=== PATIENT | male | born 2000 | race Hispanic/Latino ===

== ENCOUNTER → 2023-05-02 15:45 | Outpatient (CLI) | payer OTHER, SELFPAY ==
--- NOTE | 2023-05-02 15:51 | DI.MRI.S_ITS ---
PROCEDURE: MR LUMBAR SPINE WO CON INDICATIONS: pain TECHNIQUE: Noncontrast sagittal T1 spin echo and T2 fast echo, sagittal STIR, and T2 fast spin echo through the lumbar spine. In cases with scoliosis, additional coronal T2 fast spin echo may be performed. COMPARISON: SN[facility] Outside Film, CR, XR LUMBAR SPINE 2 OR 3 VIEWS, 10/20/2022, 12:08. FINDINGS: Image quality: Excellent. Alignment and Curvature: There is retrolisthesis of L5 on S1. Bone Marrow: Marrow is of normal overall signal. No acute vertebral body compression fractures. Spinal Cord: Conus medullaris terminates at the L1 level. Visualized cord demonstrates normal signal and size. Paraspinous Soft Tissues: No paravertebral masses. T12-L1: No disc bulge, spinal stenosis or foraminal narrowing. L1-L2: No disc bulge, spinal stenosis or foraminal narrowing. L2-L3: No disc bulge, spinal stenosis or foraminal narrowing. L3-L4: No disc bulge, spinal stenosis or foraminal narrowing. L4-L5: No disc bulge, spinal stenosis or foraminal narrowing. L5-S1: No disc bulge, spinal stenosis or foraminal narrowing. IMPRESSION: No disc bulge, spinal stenosis or foraminal narrowing. Dictated by: Lizabeth Shay M.D. on 05/02/2023 at 17:06 Approved by: Lizabeth Shay M.D. on 05/02/2023 at 17:07
== END ==
PROVIDERS: Referring Provider Preventive Medicine Aerospace Medicine; Visit Provider Preventive Medicine Aerospace Medicine
DX: R20.2 Paresthesia of skin (principal)
CPT/HCPCS: 72148

== ENCOUNTER → 2024-01-23 08:23 | Outpatient (CLI) | payer OTHER, SELFPAY ==
--- NOTE | 2024-01-23 08:24 | DI.MRI.S_ITS ---
PROCEDURE: MR CERVICAL SPINE WO CON INDICATIONS: Paresthesia of skin TECHNIQUE: Noncontrast sagittal T1 spin echo and T2 fast spin echo, sagittal STIR, foraminal oblique sagittal T2 fast spin echo, and axial gradient echo or T2 fast spin echo through the cervical spine. COMPARISON: None. FINDINGS: Image quality: Excellent. Alignment and Curvature: There is normal bony alignment. Bone Marrow: Marrow demonstrates normal overall signal. Spinal Cord: Visualized spinal cord has normal size and signal. No cerebellar tonsillar herniation. Paraspinous Soft Tissues: No paravertebral masses. Prevertebral soft tissues are normal in thickness. C2-C3: Normal appearance. C3-C4: Normal appearance. C4-C5: Normal appearance. C5-C6: Normal appearance. C6-C7: Normal appearance. C7-T1: Normal appearance. IMPRESSION: Normal MRI of the cervical spine Approved by: Bryant Ivy M.D. on 01/23/2024 at 12:53
== END ==
LOC: MRI 08:23
PROVIDERS: Family Provider Preventive Medicine Aerospace Medicine; PCP Preventive Medicine Aerospace Medicine; Referring Provider Preventive Medicine Aerospace Medicine; Visit Provider Preventive Medicine Aerospace Medicine
DX: R20.2 Paresthesia of skin (principal); G95.9 Disease of spinal cord, unspecified; R29.2 Abnormal reflex
CPT/HCPCS: 72141

== ENCOUNTER 2024-03-31 10:45 | Outpatient (RCR) | payer OTHER, SELFPAY ==
--- NOTE | 2024-01-21 14:21 | OT.OP.EVAL ---
Visit Care Team Role Provider Type Janie Carver DO Attending Provider Non-Staff Family Provider Primary Care Provider Referring Provider Specialty: Medical Address: [facility] [place], [address] Email: Occupational Therapy Initial Evaluation OT Outpatient Adult Evaluation Start: 01/21/24 11:33 Freq: Status: Active Protocol: Document 01/21/24 11:35 ELIEZER (Rec: 01/21/24 12:33 ELIEZER [id number]) General Information - Adult Visit Number 04/27 Plan of Care Dates 01/21/24 - 03/31/24 Insurance Information Prime 12 visits approved Visit Start Date 01/21/24 Visit Start Time 11:40 Visit Stop Time 12:20 Treatment Setting Outpatient Care Note Type Initial Evaluation Referring Physician Janie Carver Reason for Referral neuralgia/neuritis; B hand pain Identification Confirmed Yes Identification Confirmed By name, EMR Patient Questionnaires Quick Dash UE Score 40 Quick Dash UE Impairment 40 to 59% Impaired (Score 40- 59) Quick Dash W&S Score 75 Quick Dash Work and Sport Impairment 60 to 79% Impaired (Score 60- 79) Wrist/Hand Special Test Wrist Finklestein Test Negative Left,Negative Right Wrist Phalen Test Negative Left,Negative Right Wrist Tinel Test Negative Left,Negative Right Froment's Sign Negative Left,Negative Right Goals Objective Measurements AROM B UE grossly WFL/WNL for all movements and planes. B digit MP flex/ext 5/5, B digit abd 5/5 MMT: B elbow flex/ext 5/5; B wrist flex/ext 5/5; B forearm supination/pronation 5/5 Copy Technician: R 70, 65, 64(66.3#) L 55, 68, 75 (66#) lateral: R 8, L 7 pincer: R 6, L 6 3 jaw R 7.5, L 10 Short Term Goals 1. Pt will complete FMC and sensory testing. Appropriate goals to follow. 2. Pt will increase B bankruptcy legal assistant strength avg by 20# to improve functional use when carrying items. 3. Pt will report improved perception of function with QuickDash score of 30 or better. 4. Pt will report being able to carry his laundry basket to his room without having to set it down. Procurement Professional Goals 1. Pt will be I with HEP. 2. Pt will report a change of at least 3 points for PSFS Assessment/Plan Patient Response Good Rehabilitation Potential Good Impairments Identified ADLs,Body Mechanics, Coordination/Dexterity, Functional Activities,Pain, Weakness,Posture,Meaningful Activities Treatment Assessment Pt is a 23 yo R hand dominant M who was referred for skilled OT services due to B hand pain and + radha?s tests with a diagnosis of unspecified neuralgia/neuritis . Pt reports that he has been having pain in B hands with the L >R for approximately 1.5 years. Pt reports that pain has been gradually getting worse and that he has pain both with use and at rest. Pt reports that at times he has a burning sensation along his fingertips. Pt reports he received PT on the [employer] last year but did not have any marked improvements. Pt reports that he has pain in other areas including his neck , shoulders, and LEs. Pt reports he is working with a neurologist at this time. 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 He reports he has not been able to work lately due to his pain . Pt tries to rest his hands where they will not hurt. Pt reports that he is able to brush his teeth, shave, and shower with increased pain but without any modification. Pt denies any difficulty with getting dressed. Pt plays video games on phone for leisure, he has to take breaks due to pain. Pt reports he has difficulty gripping and carrying things, for example a grocery bag or laundry basket . He reports having to set the items down due to pain and reports that occasionally his fingers ?lock? in the hooked position when carrying a heavy bag. Patient Specific Functional Scale (PSFS): 1. ?work? 06/23; 2. ?picking up stuff? (ex. Grocery bag) 10 Pt has an overall forward shoulder and head posture which may relate to his c/o nerve like symptoms. At the time of the evaluation, pt was negative [place] for Finklestein, Phalen, Tinel (wrist), and Froment?s special tests. Pt does report feeling sensations with these tests, but the results are not consistent with what the special test is testing. Pt reports inconsistent pain or spasms in a random pattern for B UEs. OT is unable to replicate the same response twice. OT notes L 5th digit fasciculates at times. Pt also frequently adjusts his upper body appearing as if to find a comfortable position. Pt with good in-hand manipulation, finger to palm, and palm to finger. Pt demonstrates normal UE strength with respect to MMT. Pt?s bankruptcy legal assistant strength is approximately 40# less than the norms for his age group. Pt would benefit from additional testing for FMC and sensory testing. Skilled OT services are appropriate to address pt deficits and promote return toward PLOF. Pt may also benefit from additional testing to the source of his neurological symptoms and may benefit from PT. Reviewed with Patient Goals Patient Understanding Good Length of treatment (weeks) 10 Plan of Care Start Date 01/21/24 Plan of Care End Date 03/31/24 Treatment Frequency Once a Week Treatment Duration 45 Minutes Therapeutic Contents Functional Activities,Home Exercise Program,Joint Protection,Manual Therapy, Education,Neuromuscular Re- Education,Self-Care, Therapeutic Activities, Therapeutic Exercises,Sensory Re-education Patient Instruction Plan of Care,Questions/ Concerns
--- NOTE | 2024-01-21 14:24 | OT.OPPOC ---
Physical, Occupational & Speech Therapy At [facility] Mario Styles [id number] 2000 Visit Care Team Role Provider Type Janie Carver DO Attending Provider Non-Staff Family Provider Primary Care Provider Referring Provider Address: [address] [place] [address], [id number] Occupational Therapy Plan of Care OT Outpatient Adult Evaluation Start: 01/21/24 11:33 Freq: Status: Active Protocol: Document 01/21/24 11:35 NOEGEOFFREY (Rec: 01/21/24 12:33 NOEDCKMI [id number]) General Information - Adult Visit Information Visit Number 04/27 Plan of Care Dates 01/21/24 - 03/31/24 Insurance Information Prime 12 visits approved Session Time Visit Start Date 01/21/24 Visit Start Time 11:40 Visit Stop Time 12:20 Setting Treatment Setting Outpatient Care Visit Type Note Type Initial Evaluation Referral Referring Physician Janie Carver Reason for Referral neuralgia/neuritis; B hand pain Identification Identification Confirmed Yes Identification Confirmed By name, EMR Patient Questionnaires Quick Dash- Upper Extremity Quick Dash UE Score 40 Quick Dash UE Impairment 40 to 59% Impaired (Score 40- 59) Quick Dash- Work and Sports Modules Quick Dash W&S Score 75 Quick Dash Work and Sport Impairment 60 to 79% Impaired (Score 60- 79) Wrist/Hand Special Test Tenosynovitis Wrist Finklestein Test Negative Left,Negative Right Median Nerve-Carpal Tunnel Wrist Phalen Test Negative Left,Negative Right Wrist Tinel Test Negative Left,Negative Right Ulnar Nerve Froment's Sign Negative Left,Negative Right Goals Objective Measurements Objective Measurements AROM B UE grossly WFL/WNL for all movements and planes. B digit MP flex/ext 5/5, B digit abd 5/5 MMT: B elbow flex/ext 5/5; B wrist flex/ext 5/5; B forearm supination/pronation 5/5 Audit Control Clerk: R 70, 65, 64 (66.3#) L 55, 68, 75 (66#) Lateral: R 8, L 7 Pincer: R 6, L 6 3 jaw: R 7.5, L 10 Short Term Goals Short Term Goals 1. Pt will complete FMC and sensory testing. Appropriate goals to follow. 2. Pt will increase B access analyst strength avg by 20# to improve functional use when carrying items. 3. Pt will report improved perception of function with QuickDash score of 30 or better. 4. Pt will report being able to carry his laundry basket to his room without having to set it down. Middle Card Tender Goals Middle Card Tender Goals 1. Pt will be I with HEP. 2. Pt will report a change of at least 3 points for PSFS Assessment/Plan Assessment Patient Response Good Rehabilitation Potential Good Impairments Identified ADLs,Body Mechanics, Coordination/Dexterity, Functional Activities,Pain, Weakness,Posture,Meaningful Activities Treatment Assessment Pt is a 23 yo R hand dominant M who was referred for skilled OT services due to B hand pain and + radha?s tests with a diagnosis of unspecified neuralgia/neuritis . Pt reports that he has been having pain in B hands with the L >R for approximately 1.5 years. Pt reports that pain has been gradually getting worse and that he has pain both with use and at rest. Pt reports that at times he has a burning sensation along his fingertips. Pt reports he received PT [facility] the [employer] [facility] last year but did not have any marked improvements. Pt reports that he has pain in other areas including his neck , shoulders, and LEs. Pt reports he is working with a neurologist at this time. 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 He reports he has not been able to work lately due to his pain . Pt tries to rest his hands where they will not hurt. Pt reports that he is able to brush his teeth, shave, and shower with increased pain but without any modification. Pt denies any difficulty with getting dressed. Pt plays video games on phone for leisure, he has to take breaks due to pain. Pt reports he has difficulty gripping and carrying things, for example a grocery bag or laundry basket . He reports having to set the items down due to pain and reports that occasionally his fingers ?lock? in the hooked position when carrying a heavy bag. Patient Specific Functional Scale (PSFS): 1. ?work? 06/23; 2. ?picking up stuff? (ex. Grocery bag) 08/23 Pt has an overall forward shoulder and head posture which may relate to his c/o nerve like symptoms. At the time of the evaluation, pt was negative [place] for Finklestein, Phalen, Tinel (wrist), and Froment?s special tests. Pt does report feeling sensations with these tests, but the results are not consistent with what the special test is testing. Pt reports inconsistent pain or spasms in a random pattern for B UEs. OT is unable to replicate the same response twice. OT notes L 5th digit fasciculates at times. Pt also frequently adjusts his upper body appearing as if to find a comfortable position. Pt with good in-hand manipulation, finger to palm, and palm to finger. Pt demonstrates normal UE strength with respect to MMT. Pt?s access analyst strength is approximately 40# less than the norms for his age group. Pt would benefit from additional testing for FMC and sensory testing. Skilled OT services are appropriate to address pt deficits and promote return toward PLOF. Pt may also benefit from additional testing to the source of his neurological symptoms and may benefit from PT. Reviewed with Patient Goals Patient Understanding Good Plan Length of treatment (weeks) 10 Plan of Care Start Date 01/21/24 Plan of Care End Date 03/31/24 Treatment Frequency Once a Week Treatment Duration 45 Minutes Therapeutic Contents Functional Activities,Home Exercise Program,Joint Protection,Manual Therapy, Education,Neuromuscular Re- Education,Self-Care, Therapeutic Activities, Therapeutic Exercises,Sensory Re-education Patient Instruction Plan of Care,Questions/ Concerns Functional Wrist/Hand Scan Hand Side Sensory Assessment Sensory Profile2 Electronically Signed by: Latoya Vuong OT 01/21/24 1895 If you are in agreement with this Plan of Care, please return a signed and dated copy. I have reviewed this Plan of Care and certify that the skilled therapy services above are required to meet the patient?s needs. Physician Signature Date Printed Name and Credentials Clinical Instructor Signature Printed Name and Credentials
--- NOTE | 2024-01-28 13:02 | OT.OP.TRT ---
Visit Care Team Role Provider Type Janie Carver DO Attending Provider Non-Staff Family Provider Primary Care Provider Referring Provider Specialty: Medical Address: [address] [place] [address], [id number] Email: Occupational Therapy Treatment Note OT Outpatient Treatment Note - Adult Start: 01/21/24 11:33 Freq: Status: Active Protocol: Document 01/28/24 09:49 ELIEZER (Rec: 01/28/24 10:30 ELIEZER [id number]) OT Outpatient Adult Treatment Note Session Time Visit Start Date 01/28/24 Visit Start Time 09:50 Visit Stop Time 10:30 Visit Information Visit Number 05/28 Plan of Care Dates 01/21/24 - 03/31/24 Insurance Information Prime 12 visits approved Setting Treatment Setting Outpatient Care Visit Type Note Type Treatment Note - Subjective Identification Type Name Identification Reconciled With Medical Record Observations On entrance to treatment pt reports that his hand feels itchy but when he rubs it it does not improve the sensation . Pt initially localized sensation to radial dorsal aspect of L palm but then reports that it spreads and changes place. Pt denies anything that brings on the sensation. At start of tx pt reports a little bit of pain at L CMC at rest. - Objective Objective Measurements 9 hole peg test: R 21seconds, L 23 seconds Short Term Goals 1. Pt will complete FMC and sensory testing. Appropriate goals to follow. MET- 01/28/24 no new goals indicated based on assessments 2. Pt will increase B delivery sales worker strength avg by 20# to improve functional use when carrying items. Pt will report improved perception of function with QuickDash score of 30 or better. 4. Pt will report being able to carry his laundry basket to his room without having to set it down. Entry Table Operator Goals 1. Pt will be I with HEP. 2. Pt will report a change of at least 3 points for PSFS - Exercises 2 Descriptor Biometrics Consultant/Pinch: Red tputty gross grasp extension log roll alternating digit pinch finger loop digit extension 1 Descriptor Scapular retraining (to off load nerves): retraction (3-5 second hold) x 15 posterior shoulder roll x15 - Assessment Patient Response to Treatment Good Rehabilitation Potential Good Impairments Identified ADLs,Body Mechanics, Coordination/Dexterity, Functional Activities,Pain, Weakness,Posture,Meaningful Activities Assessment of Improvement Pt participated in assessment of FMC with 9 hole peg test along with sensory testing for sharp/dull, light touch, and deep touch. Pt was able to accurately discriminate all sensory inputs B'ly. No deficits noted. Pt completes 9 hole peg test within age related norms. No new goals are indicated for either of these. Pt made many reports of nerve type pain (tingling, burning) but the area of sensation was inconsistent with all tasks being performed . Pt would fixated on various sensations and had a difficult time attend or switching tasks, requiring increased vc and demonstration. Pt had difficulty tolerating scapular exercises due to c/o discomfort in shoulders. OT explained the purpose of these exercises to correct pt's posture and off load his nerves in hopes of reducing nerve like symptoms distally. Cont per established POC. - Plan Therapy Recommendations Continue with Current Program Amount of Therapy Recommended 2-3 Months Frequency of Treatment Once a Week Length of Session 45 Minutes Therapeutic Contents Functional Activities,Home Exercise Program,Joint Protection,Manual Therapy, Education,Neuromuscular Re- Education,Self-Care, Therapeutic Activities, Therapeutic Exercises,Sensory Re-education
--- NOTE | 2024-02-04 12:41 | OT.OP.TRT ---
Visit Care Team Role Provider Type Janie Carver DO Attending Provider Non-Staff Family Provider Primary Care Provider Referring Provider Specialty: Medical Address: [facility] [place], [address] Email: Occupational Therapy Treatment Note OT Outpatient Treatment Note - Adult Start: 01/21/24 11:33 Freq: Status: Active Protocol: Document 02/04/24 09:49 ELIEZER (Rec: 02/04/24 10:37 ELIEZER [id number]) OT Outpatient Adult Treatment Note Session Time Visit Start Date 02/04/24 Visit Start Time 09:45 Visit Stop Time 10:30 Visit Information Visit Number 06/25 Plan of Care Dates 01/21/24 - 03/31/24 Insurance Information Prime 12 visits approved Setting Treatment Setting Outpatient Care Visit Type Note Type Treatment Note - Subjective Identification Type Name Identification Reconciled With Medical Record Observations At start of treatment pt reports that his thumbs are bothering him they feel weird , it feels like something is poking it and indicated the tip of his left thumb. Pt also reports that his left medial lateral forearm feels like it 's getting pulled at rest kind of like bruised maybe. Following rubberband exercises pt reports that his R shoulder and upper arm it's hard to explain it feels like iron, like blood, it feels stretched like it rosenbaum. - Objective Short Term Goals 1. Pt will complete FMC and sensory testing. Appropriate goals to follow. MET- 01/28/24 no new goals indicated based on assessments 2. Pt will increase B handle turner strength avg by 20# to improve functional use when carrying items. Pt will report improved perception of function with QuickDash score of 30 or better. 4. Pt will report being able to carry his laundry basket to his room without having to set it down. Varnishing Machine Operator Goals 1. Pt will be I with HEP. 2. Pt will report a change of at least 3 points for PSFS - Exercises 3 Descriptor stablility: rubberband B thumb extension rubberband B thumb abd closed chain ball opponens/ abductor roll 2 Descriptor Casting Supervisor/Pinch: Red tputty gross grasp extension log roll alternating digit pinch finger loop digit extension 1 Descriptor Scapular retraining (to off load nerves): retraction (3-5 second hold) x 15 posterior shoulder roll x15 - Assessment Patient Response to Treatment Good Rehabilitation Potential Good Impairments Identified ADLs,Body Mechanics, Coordination/Dexterity, Functional Activities,Pain, Weakness,Posture,Meaningful Activities Assessment of Improvement Pt reports increased symptoms (it feels like my nerves and it feels like my shoulder is going to dislocate) with submaximal scapular retraction and posterior shoulder rolls. Pt performs all tasks slowly due to c/o of increased symptoms. Pt has poor posture and needs frequent cues to sit tall and not collapse forward. OT believes his posture may impact his specific set of sensations. Despite pt's symptoms, he was able to tolerate treatment well. Exercises were modified as needed. Cont per established POC. - Plan Therapy Recommendations Continue with Current Program Amount of Therapy Recommended 2-3 Months Frequency of Treatment Once a Week Length of Session 45 Minutes Therapeutic Contents Functional Activities,Home Exercise Program,Joint Protection,Manual Therapy, Education,Neuromuscular Re- Education,Self-Care, Therapeutic Activities, Therapeutic Exercises,Sensory Re-education
--- NOTE | 2024-02-11 12:45 | OT.OP.TRT ---
Visit Care Team Role Provider Type Janie Carver DO Attending Provider Non-Staff Family Provider Primary Care Provider Referring Provider Specialty: Medical Address: [facility] [place], [address] Email: Occupational Therapy Treatment Note OT Outpatient Treatment Note - Adult Start: 01/21/24 11:33 Freq: Status: Active Protocol: Document 02/11/24 09:53 ELIEZER (Rec: 02/11/24 10:30 ELIEZER [id number]) OT Outpatient Adult Treatment Note Session Time Visit Start Date 02/11/24 Visit Start Time 09:45 Visit Stop Time 10:30 Visit Information Visit Number 07/26 Plan of Care Dates 01/21/24 - 03/31/24 Insurance Information Prime 12 visits approved Setting Treatment Setting Outpatient Care Visit Type Note Type Treatment Note - Subjective Identification Type Name Identification Reconciled With Medical Record Observations Pt reports symptom mostly in R side today. Pt denies any symptoms in L yet. Pt reports that posterior shoulder rolls and retraction caused a numb, sting, like I' m not getting enough bloodflow sensation at his R shoulder and posterior aspect od R middle finger. Everything just feels weird, weakness I can't put my full strength down on it. My strength comes and goes. Sometimes I do have strength and sometimes I don't Pt reported they feel better following tputty exercises. - Objective Short Term Goals 1. Pt will complete FMC and sensory testing. Appropriate goals to follow. MET- 01/28/24 no new goals indicated based on assessments 2. Pt will increase B hospitality intern strength avg by 20# to improve functional use when carrying items. Pt will report improved perception of function with QuickDash score of 30 or better. 4. Pt will report being able to carry his laundry basket to his room without having to set it down. [facility] Goals 1. Pt will be I with HEP. 2. Pt will report a change of at least 3 points for PSFS - Exercises 4 Descriptor hospitality intern: B digi flex red alternating 3 Descriptor stablility: rubberband B thumb extension rubberband B thumb abd closed chain ball opponens/ abductor roll (unable to tolerate) 2 Descriptor Patient Services Assistant/Pinch:B Red tputty gross grasp extension log roll alternating digit pinch 3 jaw pulls lateral pinch pulls graded clothespin yellow 3 jaw squeeze 1 Descriptor Scapular retraining (to off load nerves): retraction (3-5 second hold) x 15 posterior shoulder roll x15 - Assessment Patient Response to Treatment Good Rehabilitation Potential Good Impairments Identified ADLs,Body Mechanics, Coordination/Dexterity, Functional Activities,Pain, Weakness,Posture,Meaningful Activities Assessment of Improvement Pt continues to report increased symptoms with scapular exercises. Pt generally has forward head and shoulder posture and would benefit from postural changes to take pressure off the nerves. OT will continue to try to address these within tolerated limits. Pt tolerated addition of strengthening tasks for B hands with minimal c/o of discomfort. For the most part, pt's symptoms reduced with continued use of his hands. On occasion this did not occur and exercises were terminated or modified as needed. Pt's complaints continue to be intermittent and inconsistent with task. Cont per established POC. - Plan Therapy Recommendations Continue with Current Program Amount of Therapy Recommended 2-3 Months Frequency of Treatment Once a Week Length of Session 45 Minutes Therapeutic Contents Functional Activities,Home Exercise Program,Joint Protection,Manual Therapy, Education,Neuromuscular Re- Education,Self-Care, Therapeutic Activities, Therapeutic Exercises,Sensory Re-education
--- NOTE | 2024-02-20 12:57 | OT.OP.TRT ---
Visit Care Team Role Provider Type Janie Carver DO Attending Provider Non-Staff Family Provider Primary Care Provider Referring Provider Specialty: Medical Address: [facility] [place], [address] Email: Occupational Therapy Treatment Note OT Outpatient Treatment Note - Adult Start: 01/21/24 11:33 Freq: Status: Active Protocol: Document 02/20/24 10:55 ELIEZER (Rec: 02/20/24 09:31 ELIEZER [id number]) OT Outpatient Adult Treatment Note Session Time Visit Start Date 02/20/24 Visit Start Time 10:55 Visit Stop Time 11:30 Visit Information Visit Number 08/25 Plan of Care Dates 01/21/24 - 03/31/24 Insurance Information [facility] 12 visits approved Setting Treatment Setting Outpatient Care Visit Type Note Type Treatment Note - Subjective Identification Type Name Identification Reconciled With Medical Record Observations Right now it feels weak. It like hurts but it doesn't at the same time. I feel pain mostly on the ring finger and at my elbow. (ring finger c/o B, and elbow is on L only). It is mostly when I wake up. Pt reports he sleeps on his back with his arms at his side . Sometimes he wakes up on his side. I usually don't stay in the same position for long, I wake up all night moving. Pt says when he feels weak it feels like when nails are on a chalk board. Pt reports that he has not been doing his tputty HEP because he is forgetting to. Pt has not eaten yet today. Pt wonders if that might be why he feels so weak. - Objective Objective Measurements nurse's aides teacher: R 55, 41, 38 (avg 44.7#) L 44, 41, 31 (avg 38.7#) Short Term Goals 1. Pt will complete FMC and sensory testing. Appropriate goals to follow. MET- 01/28/24 no new goals indicated based on assessments 2. Pt will increase B nurse's aides teacher strength avg by 20# to improve functional use when carrying items. Pt will report improved perception of function with QuickDash score of 30 or better. 4. Pt will report being able to carry his laundry basket to his room without having to set it down. Skilled Nursing Goals 1. Pt will be I with HEP. 2. Pt will report a change of at least 3 points for PSFS - Exercises 4 Descriptor nurse's aides teacher: B digi flex red alternating 3 Descriptor stablility: rubberband B thumb extension rubberband B thumb abd closed chain ball opponens/ abductor roll (unable to tolerate) 2 Descriptor Rn Patient Services/Pinch:B Red tputty gross grasp extension log roll alternating digit pinch 3 jaw pulls lateral pinch pulls graded clothespin yellow 3 jaw squeeze - Assessment Patient Response to Treatment Good Rehabilitation Potential Good Impairments Identified ADLs,Body Mechanics, Coordination/Dexterity, Functional Activities,Pain, Weakness,Posture,Meaningful Activities Assessment of Improvement Pt has decreased nurse's aides teacher strength today vs eval. Pt appeared to be putting for full effort with each nurse's aides teacher, R nurse's aides teacher is decreased by 21.6# and L by 27 .3#. During task, pt reports that he didn't feel like he could put forth more effort because it's weak feeling. OT educates pt on benefit of performing HEP and need for a good diet and hydration for general healing and body function. Pt verbalizes understanding. Pt generally tolerates treatment well, with frequent short rbs and vcs to encourage continuation of exercises when pt becomes distracted by his evolving symptoms. OT does not have a logical theory for pt's particular presentation of symptoms, however, continues to encourage general strength and conditioning for functional gains. Cont per POC . Reviewed with Patient/Caregiver Home Exercise Program Patient/Caregiver Understanding Good - Plan Therapy Recommendations Continue with Current Program Amount of Therapy Recommended 2-3 Months Frequency of Treatment Once a Week Length of Session 45 Minutes Therapeutic Contents Functional Activities,Home Exercise Program,Joint Protection,Manual Therapy, Education,Neuromuscular Re- Education,Self-Care, Therapeutic Activities, Therapeutic Exercises,Sensory Re-education
--- NOTE | 2024-02-27 12:54 | OT.OP.TRT ---
Visit Care Team Role Provider Type Janie Carver DO Attending Provider Non-Staff Family Provider Primary Care Provider Referring Provider Specialty: Medical Address: [address] [place] [address], [id number] Email: Occupational Therapy Treatment Note OT Outpatient Treatment Note - Adult Start: 01/21/24 11:33 Freq: Status: Active Protocol: Document 02/27/24 10:46 NOESREEEMILYDENNIS (Rec: 02/27/24 10:51 ELIEZER [id number]) OT Outpatient Adult Treatment Note Session Time Visit Start Date 02/27/24 Visit Start Time 10:45 Visit Stop Time 11:30 Visit Information Visit Number 09/25 Plan of Care Dates 01/21/24 - 03/31/24 Insurance Information [facility] 12 visits approved Setting Treatment Setting Outpatient Care Visit Type Note Type Treatment Note - Subjective Identification Type Name Identification Reconciled With Medical Record Observations At start of tx pt reports that my thumbs hurt and my fingers are just there. He says that he has some pain in his fingers is on the palm side when he flexes his fingers. Pt frequently reports feeling like the palmar aspect of his hands feel bruised when performing clinical data programmer and pinch exercises. Following tx pt reports it doesn't feel that bad pt also reports seeing benefit of exercises for building strength. - Objective Objective Measurements clinical data programmer: R 50, 50, 56 (avg 52#) L 47, 70, 60 (avg 59#) Short Term Goals 1. Pt will complete FMC and sensory testing. Appropriate goals to follow. MET- 01/28/24 no new goals indicated based on assessments 2. Pt will increase B clinical data programmer strength avg by 20# to improve functional use when carrying items. Pt will report improved perception of function with QuickDash score of 30 or better. 4. Pt will report being able to carry his laundry basket to his room without having to set it down. MET 02/27/24 [facility] Goals 1. Pt will be I with HEP. 2. Pt will report a change of at least 3 points for PSFS - Exercises 6 Descriptor Free weight: 1# (one set) 2# ( one set) B wrist flexion 20x2 B wrist extension 20x2 B wrist radial/ulnar deviation 20x 5 Descriptor Flex bar (red): B supination x20 B pronation x20 B wrist flex and ext ( attempted, d/c due to excessive popping at elbow) 4 Descriptor clinical data programmer: B digi flex red alternating 3 Descriptor stability: 2 Descriptor Manager Mining/Pinch: B Red tputty: -gross grasp -extension log roll -alternating digit pinch -3 jaw pulls -lateral pinch pulls graded clothespin yellow 3 jaw squeeze 1 Descriptor Scapular retraining (to off load nerves): retraction (3-5 second hold) 15x, 10x posterior shoulder roll 15x, 10x - Assessment Patient Response to Treatment Good Rehabilitation Potential Good Impairments Identified ADLs,Body Mechanics, Coordination/Dexterity, Functional Activities,Pain, Weakness,Posture,Meaningful Activities Assessment of Improvement Pt's clinical data programmer strength is improved from last week but is still decreased from eval. Pt c/o hands feeling weak and bruised throughout treatment session. Pt tolerated new exercises well, with one exception, he had some popping at the PRUJ with flex bar wrist flex/ext, this exercises was discontinued and replaced with weighted wrist strengthening. He tolerated this well and seemed to see a benefit to it. Pt has met STG #4. He reports that he does ot have to set his laundry basket down , but that he does have pain in his fingers when carrying it. Cont per established POC. Reviewed with Patient/Caregiver Home Exercise Program Patient/Caregiver Understanding Good - Plan Therapy Recommendations Continue with Current Program Amount of Therapy Recommended 2-3 Months Frequency of Treatment Once a Week Length of Session 45 Minutes Therapeutic Contents Functional Activities,Home Exercise Program,Joint Protection,Manual Therapy, Education,Neuromuscular Re- Education,Self-Care, Therapeutic Activities, Therapeutic Exercises,Sensory Re-education
--- NOTE | 2024-03-05 12:52 | OT.OP.TRT ---
Visit Care Team Role Provider Type Janie Carver DO Attending Provider Non-Staff Family Provider Primary Care Provider Referring Provider Specialty: Medical Address: [address] [place] [address], [id number] Email: Occupational Therapy Treatment Note OT Outpatient Treatment Note - Adult Start: 01/21/24 11:33 Freq: Status: Active Protocol: Document 03/05/24 10:45 NOEGEOFFREY (Rec: 03/05/24 08:14 NOESREEKIM [id number]) OT Outpatient Adult Treatment Note Session Time Visit Start Date 03/05/24 Visit Start Time 10:45 Visit Stop Time 11:30 Visit Information Visit Number 10/25 Plan of Care Dates 01/21/24 - 03/31/24 Insurance Information Prime 12 visits approved Setting Treatment Setting Outpatient Care Visit Type Note Type Treatment Note - Subjective Identification Type Name Identification Reconciled With Medical Record Observations At start of tx pt reports his fingers hurt, he touches the dorsal and palmar surfaces of B 5th digits when stating this . He reports it feels like the type of pain you get when you touch the stove. Pt's c/ o pain moved from his 5th digit to his 4th digit on the R side prior to any treatment activity. Pt later reports L wrist pain it feels bruised with weighted wrist activities . Pt reports feeling it in his L shoulder and describes as a burn when performing hand and forearm strengthening at midline. As therapy progressed, pt c/o his L shoulder feeling heavy. - Objective Short Term Goals 1. Pt will complete FMC and sensory testing. Appropriate goals to follow. MET- 01/28/24 no new goals indicated based on assessments 2. Pt will increase B roof panel hanger strength avg by 20# to improve functional use when carrying items. 3. Pt will report improved perception of function with QuickDash score of 30 or better. 4. Pt will report being able to carry his laundry basket to his room without having to set it down. MET 02/27/24 Furniture Inspector Goals 1. Pt will be I with HEP. 2. Pt will report a change of at least 3 points for PSFS - Exercises 6 Descriptor Free weight: 2# B wrist flexion 8x, 10x B wrist extension 8x, 10x B wrist radial/ulnar deviation 10x2 5 Descriptor Flex bar (red): B supination 10x2 B pronation 10x2 4 Descriptor roof panel hanger: B digi flex green alternating x10 B digi flex green composite x10 3 Descriptor stability: 2 Descriptor Trip Motor Operator/Pinch: B Red tputty: -gross grasp -extension log roll -alternating digit pinch -3 jaw pulls -lateral pinch pulls graded clothespin red 3 jaw squeeze 10x2 1 Descriptor Scapular retraining (to off load nerves): retraction 20x posterior shoulder roll 20x - Assessment Patient Response to Treatment Good Rehabilitation Potential Good Impairments Identified ADLs,Body Mechanics, Coordination/Dexterity, Functional Activities,Pain, Weakness,Posture,Meaningful Activities Assessment of Improvement Pt overall continues to have somewhat forward head and shoulders posture at rest. Pt is able to sit tall with vcs. Pt has evolving symptoms that change throughout treatment session and do not seem to correspond specifically or predictably to the task at hand. Pt requires encouragement to continue exercise/task at on occasion as he becomes fixated on his evolving symptoms. It is difficult to assess pt's progress as pt's complaints are inconsistent and frequently change during the same exercise/task. Pt tolerated increased resistance with free weights, digi flex, and graded clothespin today in efforts to build pt's functional strength. In past treatments, pt has demonstrated a decrease in his roof panel hanger strength from his initial strength on eval. OT will continue to address ex/ act to improve pts function. Cont per POC. Reviewed with Patient/Caregiver Home Exercise Program Patient/Caregiver Understanding Good - Plan Therapy Recommendations Continue with Current Program Amount of Therapy Recommended 2-3 Months Frequency of Treatment Once a Week Length of Session 45 Minutes Therapeutic Contents Functional Activities,Home Exercise Program,Joint Protection,Manual Therapy, Education,Neuromuscular Re- Education,Self-Care, Therapeutic Activities, Therapeutic Exercises,Sensory Re-education
--- NOTE | 2024-03-10 12:57 | OT.OP.TRT ---
Visit Care Team Role Provider Type Janie Carver DO Attending Provider Non-Staff Family Provider Primary Care Provider Referring Provider Specialty: Medical Address: [facility] [place], [address] Email: Occupational Therapy Treatment Note OT Outpatient Treatment Note - Adult Start: 01/21/24 11:33 Freq: Status: Active Protocol: Document 03/10/24 10:45 ELIEZER (Rec: 03/10/24 11:29 ELIEZER [id number]) OT Outpatient Adult Treatment Note Session Time Visit Start Date 03/10/24 Visit Start Time 10:45 Visit Stop Time 11:30 Visit Information Visit Number 11/25 Plan of Care Dates 01/21/24 - 03/31/24 Insurance Information Prime 12 visits approved Setting Treatment Setting Outpatient Care Visit Type Note Type Treatment Note - Subjective Identification Type Name Identification Reconciled With Medical Record Observations At start of tx pt reports feeling it in B 4th digits both palmar and dorsal surfaces. As tx progresses pt c/o joint pain in his 5th digits. At end of tx pt reports I just feel it in my pinky, all around, and on my thumb. Pt reports that his muscles are tired throughout treatment. Pt takes rbs as necessary. - Objective Objective Measurements claims account specialist: R 53, 50, 60 (avg 54.3#) L 55, 52, 65 (avg 57.3#) Short Term Goals 1. Pt will complete FMC and sensory testing. Appropriate goals to follow. MET- 01/28/24 no new goals indicated based on assessments 2. Pt will increase B claims account specialist strength avg by 20# to improve functional use when carrying items. 3. Pt will report improved perception of function with QuickDash score of 30 or better. 4. Pt will report being able to carry his laundry basket to his room without having to set it down. MET 02/27/24 Window Repairer Goals 1. Pt will be I with HEP. 2. Pt will report a change of at least 3 points for PSFS - Exercises 6 Descriptor Free weight: 2# B wrist flexion 10x3 B wrist extension 10x3 B wrist radial/ulnar deviation 10x3 5 Descriptor Flex bar (red): B supination 15x3 B pronation 15x3 4 Descriptor claims account specialist: B digi flex blue alternating 10x2 B digi flex blue composite 10x3 3 Descriptor digit extension with green resistance 15x3 2 Descriptor Event Host/Pinch: B Red tputty: -gross grasp -extension log roll -alternating digit pinch -3 jaw pulls -lateral pinch pulls graded clothespin green 3 jaw squeeze 10x, blue 3 jaw squeeze 10x2 - Assessment Patient Response to Treatment Good Rehabilitation Potential Good Impairments Identified ADLs,Body Mechanics, Coordination/Dexterity, Functional Activities,Pain, Weakness,Posture,Meaningful Activities Assessment of Improvement Pt tolerated increased sets and reps with flex bar, free weights, digi flex, and graded clothespin tasks today. Overall, pt voiced fewer symptoms during today's treatment. Primarily patient reports a feeling of muscle fatigue following exercises. This is to be expected with the increased reps and sets performed. Overall, pt had fewer complaints throughout today's treatment session. Pt made good progress with strengthening tasks today. Cont per established POC. Reviewed with Patient/Caregiver Progress Being Made,Home Exercise Program Patient/Caregiver Understanding Good - Plan Therapy Recommendations Continue with Current Program Amount of Therapy Recommended 2-3 Months Frequency of Treatment Once a Week Length of Session 45 Minutes Therapeutic Contents Functional Activities,Home Exercise Program,Joint Protection,Manual Therapy, Education,Neuromuscular Re- Education,Self-Care, Therapeutic Activities, Therapeutic Exercises,Sensory Re-education
--- NOTE | 2024-03-19 11:30 | OT.OP.TRT ---
Visit Care Team Role Provider Type Janie Carver DO Attending Provider Non-Staff Family Provider Primary Care Provider Referring Provider Specialty: Medical Address: [address] [place] [address], [address] Email: Occupational Therapy Treatment Note OT Outpatient Treatment Note - Adult Start: 01/21/24 11:33 Freq: Status: Active Protocol: Document 03/19/24 10:13 ELIEZER (Rec: 03/19/24 10:15 ELIEZER [id number]) OT Outpatient Adult Treatment Note Session Time Visit Start Date 03/19/24 Visit Start Time 10:50 Visit Stop Time 11:30 Visit Information Visit Number 12/26 Plan of Care Dates 01/21/24 - 03/31/24 Insurance Information Prime 12 visits approved Setting Treatment Setting Outpatient Care Visit Type Note Type Treatment Note - Subjective Identification Type Name Identification Reconciled With Medical Record Observations At start of tx pt reports having a pinch or bruise sensation in L forearm and the back of his PIPs. Within minutes pt reports having a similar sensation on his R. Pt reports that neither side is worst. - Objective Short Term Goals 1. Pt will complete FMC and sensory testing. Appropriate goals to follow. MET- 01/28/24 no new goals indicated based on assessments 2. Pt will increase B whizzer operator strength avg by 20# to improve functional use when carrying items. 3. Pt will report improved perception of function with QuickDash score of 30 or better. 4. Pt will report being able to carry his laundry basket to his room without having to set it down. MET 02/27/24 [facility] Goals 1. Pt will be I with HEP. 2. Pt will report a change of at least 3 points for PSFS - Exercises 6 Descriptor Free weight: 3# B wrist flexion 10x3 B wrist extension 10x3 B wrist radial/ulnar deviation 10x3 5 Descriptor Flex bar (green): B supination 15x3 B pronation 15x3 4 Descriptor whizzer operator: B digi flex blue alternating 15x2 B digi flex blue composite 20x2 3 Descriptor digit extension with green resistance 15x2 2 Descriptor graded clothespin black 3 jaw squeeze 10x4 - Assessment Patient Response to Treatment Good Rehabilitation Potential Fair Impairments Identified ADLs,Body Mechanics, Coordination/Dexterity, Functional Activities,Pain, Weakness,Posture,Meaningful Activities Assessment of Improvement Pt very distracted during today's treatment, requiring a lot of redirection to attend to tasks. In addition, pt would deviate from desired exercise creating his own and requiring redirection for correct exercises/form. Pt tolerated increased resistance with flex bar, graded clothespin, and free weight for wrist strengthening . Pt needs vc/demonstration for correct form with many of the exercises today. Cont per established POC. Reviewed with Patient/Caregiver Progress Being Made,Home Exercise Program Patient/Caregiver Understanding Good - Plan Therapy Recommendations Continue with Current Program Amount of Therapy Recommended 2-3 Months Frequency of Treatment Once a Week Length of Session 45 Minutes Therapeutic Contents Functional Activities,Home Exercise Program,Joint Protection,Manual Therapy, Education,Neuromuscular Re- Education,Self-Care, Therapeutic Activities, Therapeutic Exercises,Sensory Re-education
--- NOTE | 2024-03-26 11:43 | OT.OP.TRT ---
Visit Care Team Role Provider Type Janie Carver DO Attending Provider Non-Staff Family Provider Primary Care Provider Referring Provider Specialty: Medical Address: [facility] [place], [address] Email: Occupational Therapy Treatment Note OT Outpatient Treatment Note - Adult Start: 01/21/24 11:33 Freq: Status: Active Protocol: Document 03/26/24 10:50 NOEGEOFFREY (Rec: 03/26/24 11:42 NOESREEKIM [id number]) OT Outpatient Adult Treatment Note Session Time Visit Start Date 03/26/24 Visit Start Time 10:50 Visit Stop Time 11:30 Visit Information Visit Number 01/25 Plan of Care Dates 01/21/24 - 03/31/24 Insurance Information Prime 12 visits approved Setting Treatment Setting Outpatient Care Visit Type Note Type Treatment Note - Subjective Identification Type Name Identification Reconciled With Medical Record Observations Pt reports that he is having trouble with his L shoulder blade, elbow, wrist, and fingers and his R fingers at start of tx. Pt reports these areas feel weak, stiff, pricks , and bruised. Pt reports that these sensations when he left his car and began walking into the therapy clinic. Pt reports feeling like his fingers were locking up when performing the farmers carry. Pt reports burning sensation on B palms following resisted digit extension. Pt reports he sometimes performs his putty HEP, approximately once a week. - Objective Short Term Goals 1. Pt will complete FMC and sensory testing. Appropriate goals to follow. MET- 01/28/24 no new goals indicated based on assessments 2. Pt will increase B corsage maker strength avg by 20# to improve functional use when carrying items. 3. Pt will report improved perception of function with QuickDash score of 30 or better. 4. Pt will report being able to carry his laundry basket to his room without having to set it down. MET 02/27/24 Skilled Nursing Goals 1. Pt will be I with HEP. 2. Pt will report a change of at least 3 points for PSFS - Exercises 7 Descriptor hammer pronation and supination B 20x2 6 Descriptor Free weight: 3# B wrist flexion 10x3 B wrist extension 10x3 B wrist radial/ulnar deviation 10x3 almanzar carry 10# B 60 seconds x2 5 Descriptor Flex bar (green): 4 Descriptor corsage maker: B digi flex blue alternating 15x2 B digi flex blue composite 20x2 3 Descriptor digit extension with green resistance 20x2 2 Descriptor graded clothespin black 3 jaw squeeze 10x4 1 Descriptor Scapular retraining (to off load nerves): retraction 20x posterior shoulder roll 20x - Assessment Patient Response to Treatment Good Rehabilitation Potential Fair Impairments Identified ADLs,Body Mechanics, Coordination/Dexterity, Functional Activities,Pain, Weakness,Posture,Meaningful Activities Assessment of Improvement Pt was better able to attend during today's tx compared to last treatment. Pt also performed exercises as instructed with minimal deviation and minimal cues needed compared to last treatment. Pt's symptoms continue to evolve throughout treatment session and frequently do not have a clear cause. Pt tolerated several new exercises today including farmers carry and hammer pronation and supination. Pt reports relative non compliance with tputty HEP. OT to take measurements at next tx. Cont per POC. Reviewed with Patient/Caregiver Progress Being Made,Home Exercise Program Patient/Caregiver Understanding Good - Plan Therapy Recommendations Continue with Current Program Amount of Therapy Recommended 2-3 Months Frequency of Treatment Once a Week Length of Session 45 Minutes Therapeutic Contents Functional Activities,Home Exercise Program,Joint Protection,Manual Therapy, Education,Neuromuscular Re- Education,Self-Care, Therapeutic Activities, Therapeutic Exercises,Sensory Re-education
--- NOTE | 2024-03-31 12:57 | OT.OP.TRT ---
Visit Care Team Role Provider Type Janie Carver DO Attending Provider Non-Staff Family Provider Primary Care Provider Referring Provider Specialty: Medical Address: [facility] [place], [address] Email: Occupational Therapy Treatment Note OT Outpatient Treatment Note - Adult Start: 01/21/24 11:33 Freq: Status: Active Protocol: Document 03/31/24 10:40 ELIEZER (Rec: 03/31/24 11:08 ELIEZER [id number]) OT Outpatient Adult Treatment Note Session Time Visit Start Date 03/31/24 Visit Start Time 10:45 Visit Stop Time 11:30 Visit Information Visit Number 02/25 Plan of Care Dates 01/21/24 - 03/31/24 Insurance Information [facility] 12 visits approved Setting Treatment Setting Outpatient Care Visit Type Note Type Treatment Note - Subjective Identification Type Name Identification Reconciled With Medical Record Observations Just my fingers, elbows, and hands. They hurt. They burn. It feels stiff a lot. Pt reports L>R Pt reports his symptoms are worse at work tingling, burning and going numb. Pt says this happens whether or not he does anything. Pt also reports twitching at rest and with activity. I try not to write. It just hurts. Pt reports that his hands often lock or trigger and he has to use the other hand to straighten his fingers. - Objective Objective Measurements Sales Project Coordinator: R 41, 35, 41 (avg 39#); L 51, 35, 49 (avg 45#) Pinch: lateral R 8# L 9.25#, pincer R 3# L 3.25#, 3 jaw R 5 .25# L 4# PSFS: 1. work 04/25 2. picking stuff up 08/23 QuickDash 56.9, Quick Dash Work 93.75 Short Term Goals 1. Pt will complete FMC and sensory testing. Appropriate goals to follow. MET- 01/28/24 no new goals indicated based on assessments 2. Pt will increase B analysis or research safety inspector strength avg by 20# to improve functional use when carrying items. NOT MET 3. Pt will report improved perception of function with QuickDash score of 30 or better. NOT MET 4. Pt will report being able to carry his laundry basket to his room without having to set it down. MET 02/27/24 Fdc Goals 1. Pt will be I with HEP. NOT MET 2. Pt will report a change of at least 3 points for PSFS NOT MET - Exercises 6 Descriptor Free weight: 3# B wrist flexion 10x3 B wrist extension 10x3 B wrist radial/ulnar deviation 10x3 almanzar carry 10# B 60 seconds x2 3 Descriptor digit extension with green resistance 20x2 - Assessment Patient Response to Treatment Fair Rehabilitation Potential Fair Impairments Identified ADLs,Body Mechanics, Coordination/Dexterity, Functional Activities,Pain, Weakness,Posture,Meaningful Activities Assessment of Improvement Pt's hands locked after farmers carry. OT was able to straighten his fingers with mild resistance. OT felt a slight catch with 3/8 digits. Pt tolerated wrist strengthening and digit extension strengthening. Reviewed with Patient/Caregiver Goals,Progress Being Made,Home Exercise Program Patient/Caregiver Understanding Good - Plan Therapy Recommendations Discharge from Occupational Therapy
--- NOTE | 2024-03-31 12:59 | OT.OP.DC ---
Visit Care Team Role Provider Type Janie Carver DO Attending Provider Non-Staff Family Provider Primary Care Provider Referring Provider Address: [address] [place] [address], [id number] Email: OT Outpatient OT Outpatient Adult Evaluation Start: 01/21/24 11:33 Freq: Status: Active Protocol: Document 01/21/24 11:35 ELIEZER (Rec: 01/21/24 12:33 ELIEZER [id number]) General Information - Adult Visit Information Visit Number 04/27 Plan of Care Dates 01/21/24 - 03/31/24 Insurance Information Prime 12 visits approved Session Time Visit Start Date 01/21/24 Visit Start Time 11:40 Visit Stop Time 12:20 Setting Treatment Setting Outpatient Care Visit Type Note Type Initial Evaluation Referral Referring Physician Janie Carver Reason for Referral neuralgia/neuritis; B hand pain Identification Identification Confirmed Yes Identification Confirmed By name, EMR Patient Questionnaires Quick Dash- Upper Extremity Quick Dash UE Score 40 Quick Dash UE Impairment 40 to 59% Impaired (Score 40- 59) Quick Dash- Work and Sports Modules Quick Dash W&S Score 75 Quick Dash Work and Sport Impairment 60 to 79% Impaired (Score 60- 79) Wrist/Hand Special Test Tenosynovitis Wrist Finklestein Test Negative Left,Negative Right Median Nerve-Carpal Tunnel Wrist Phalen Test Negative Left,Negative Right Wrist Tinel Test Negative Left,Negative Right Ulnar Nerve Froment's Sign Negative Left,Negative Right Goals Objective Measurements Objective Measurements AROM B UE grossly WFL/WNL for all movements and planes. B digit MP flex/ext 5/5, B digit abd 5/5 MMT: B elbow flex/ext 5/5; B wrist flex/ext 5/5; B forearm supination/pronation 5/5 Short Term Goals Short Term Goals 1. Pt will complete FMC and sensory testing. Appropriate goals to follow. 2. Pt will increase B avid editor strength avg by 20# to improve functional use when carrying items. 3. Pt will report improved perception of function with QuickDash score of 30 or better. 4. Pt will report being able to carry his laundry basket to his room without having to set it down. Regulatory Affairs Consultant Goals Skilled Nursing Goals 1. Pt will be I with HEP. 2. Pt will report a change of at least 3 points for PSFS Assessment/Plan Assessment Patient Response Good Rehabilitation Potential Good Impairments Identified ADLs,Body Mechanics, Coordination/Dexterity, Functional Activities,Pain, Weakness,Posture,Meaningful Activities Treatment Assessment Pt is a 23 yo R hand dominant M who was referred for skilled OT services due to B hand pain and + radha?s tests with a diagnosis of unspecified neuralgia/neuritis . Pt reports that he has been having pain in B hands with the L >R for approximately 1.5 years. Pt reports that pain has been gradually getting worse and that he has pain both with use and at rest. Pt reports that at times he has a burning sensation along his fingertips. Pt reports he received PT on the mygola last year but did not have any marked improvements. Pt reports that he has pain in other areas including his neck , shoulders, and LEs. Pt reports he is working with a neurologist at this time. 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 He reports he has not been able to work lately due to his pain . Pt tries to rest his hands where they will not hurt. Pt reports that he is able to brush his teeth, shave, and shower with increased pain but without any modification. Pt denies any difficulty with getting dressed. Pt plays video games on phone for leisure, he has to take breaks due to pain. Pt reports he has difficulty gripping and carrying things, for example a grocery bag or laundry basket . He reports having to set the items down due to pain and reports that occasionally his fingers ?lock? in the hooked position when carrying a heavy bag. Patient Specific Functional Scale (PSFS): 1. ?work? 3/10; 2. ?picking up stuff? (ex. Grocery bag) 5/10 Pt has an overall forward shoulder and head posture which may relate to his c/o nerve like symptoms. At the time of the evaluation, pt was negative Maryneal for Finklestein, Phalen, Tinel (wrist), and Froment?s special tests. Pt does report feeling sensations with these tests, but the results are not consistent with what the special test is testing. Pt reports inconsistent pain or spasms in a random pattern for B UEs. OT is unable to replicate the same response twice. OT notes L 5th digit fasciculates at times. Pt also frequently adjusts his upper body appearing as if to find a comfortable position. Pt with good in-hand manipulation, finger to palm, and palm to finger. Pt demonstrates normal UE strength with respect to MMT. Pt?s avid editor strength is approximately 40# less than the norms for his age group. Pt would benefit from additional testing for FMC and sensory testing. Skilled OT services are appropriate to address pt deficits and promote return toward PLOF. Pt may also benefit from additional testing to the source of his neurological symptoms and may benefit from PT. Reviewed with Patient Goals Patient Understanding Good Plan Length of treatment (weeks) 10 Plan of Care Start Date 01/21/24 Plan of Care End Date 03/31/24 Treatment Frequency Once a Week Treatment Duration 45 Minutes Therapeutic Contents Functional Activities,Home Exercise Program,Joint Protection,Manual Therapy, Education,Neuromuscular Re- Education,Self-Care, Therapeutic Activities, Therapeutic Exercises,Sensory Re-education Patient Instruction Plan of Care,Questions/ Concerns Functional Wrist/Hand Scan Hand Side Sensory Assessment Sensory Profile2 OT Outpatient Discharge Note - Adult Start: 01/21/24 11:33 Freq: Status: Active Protocol: Document 03/31/24 10:40 ELIEZER (Rec: 03/31/24 11:08 ELIEZER [id number]) OT Outpatient Adult Discharge Note Session Time Visit Start Date 03/31/24 Visit Start Time 10:45 Visit Stop Time 11:30 Visit Information Visit Number 11/12 Plan of Care Dates 01/21/24 - 03/31/24 Insurance Information [facility] 12 visits approved Setting Treatment Setting Outpatient Care Visit Type Note Type Discharge Note - Subjective Identification Type Name Identification Reconciled With Medical Record Observations Just my fingers, elbows, and hands. They hurt. They burn. It feels stiff a lot. Pt reports L>R Pt reports his symptoms are worse at work tingling, burning and going numb. Pt says this happens whether or not he does anything. Pt also reports twitching at rest and with activity. I try not to write. It just hurts. Pt reports that his hands often lock or trigger and he has to use the other hand to straighten his fingers. 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 work 10 2. picking stuff up /10 QuickDash 56.9, Quick Dash Work 93.75 Short Term Goals 1. Pt will complete FMC and sensory testing. Appropriate goals to follow. MET- 01/28/24 no new goals indicated based on assessments 2. Pt will increase B avid editor strength avg by 20# to improve functional use when carrying items. NOT MET 3. Pt will report improved perception of function with QuickDash score of 30 or better. NOT MET 4. Pt will report being able to carry his laundry basket to his room without having to set it down. MET 02/27/24 Skilled Nursing Goals 1. Pt will be I with HEP. NOT MET 2. Pt will report a change of at least 3 points for PSFS NOT MET - - Assessment Patient Response to Treatment Fair Rehabilitation Potential Fair Impairments Identified ADLs,Body Mechanics, Coordination/Dexterity, Functional Activities,Pain, Weakness,Posture,Meaningful Activities Assessment of Improvement Overall, pt has declined since evaluation with respect to strength and perceived function. Pt demonstrates at least 27# decrease in avid editor strength, lateral pinch strength L increased to 9.25#, otherwise pinch strengths have decreased by at least 3#. Pt reports decline in perceived function with QuickDash of 56.9 (40 at eval) and QuickDash Work of 93.75 ( 75 at eval). Pt also reports decline with Patient Specific Functional Scale, with work function declining from at 3/ 10 to a 1/10 today. Throughout treatment sessions, pt has had fluctuating reports of symptoms that do not seem to relate to task being performed. Pt's tolerance of activity has varied each treatment session as well. During today's tx Pt's hands locked after farmers carry. OT was able to straighten his fingers with mild resistance. OT felt a slight catch with 3/8 digits. Pt was I with tputty HEP during tx sessions, but reports performing at most once a week at home. PT has met 2/4 STGs and 0/2 LTGs. Skilled OT services have not been able to promote return to PLOF. Pt may benefit from additional testing. D/C from skilled OT services at this time. Reviewed with Patient/Caregiver Goals,Progress Being Made,Home Exercise Program Patient/Caregiver Understanding Good - Plan Therapy Recommendations Discharge from Occupational Therapy
== END 2024-04-02 14:27 | disposition home or self-care (01) ==
LOC: OT 10:45
PROVIDERS: Family Provider Preventive Medicine Aerospace Medicine; PCP Preventive Medicine Aerospace Medicine; Referring Provider Preventive Medicine Aerospace Medicine; Visit Provider Preventive Medicine Aerospace Medicine
DX: M79.2 Neuralgia and neuritis, unspecified (principal)
CPT/HCPCS: 97110; 97165; 97530